=== PATIENT | male | born 1960 | race Caucasian/White ===

== ENCOUNTER 2017-02-15 15:53 | Emergency (ER) | payer MEDICAID ==
[~2017-02-15] VITALS: Ht 172.7 cm; Wt 70.0 kg
[2017-02-15] MEDS ORDERED: HYDR25 PO (16:05)
[2017-02-15] MEDS ORDERED: TRAM50TA4 PO (16:05)
[2017-02-15] MEDS ORDERED: ATEN50TA PO (16:05)
[2017-02-15] MEDS ORDERED: TRAZ-144 PO (16:05)
[2017-02-15] MEDS ORDERED: AMLO-512 PO (16:05)
[2017-02-15] MEDS ORDERED: FOLI0.8T43 (16:05)
[2017-02-15] MEDS ORDERED: GABA-529 PO (16:05)
[2017-02-15] MEDS ORDERED: FURO20 PO (16:05)
[2017-02-15] MEDS ORDERED: GABA-531 PO (16:05)
[2017-02-15] MEDS ORDERED: PHOSLOC PO (16:05)
[2017-02-15] MEDS ORDERED: OMEP20 PO (16:05)
[2017-02-15 16:12] LABS: GLUCOSE,POINT OF CARE 125 MG/DL (70-110)
[2017-02-15 17:37] LABS: BASOPHILS % (AUTO) 0.6 % (0.0-2.0); EOSINOPHILS % (AUTO) 9.2 % (1.0-6.0); HEMOGLOBIN 12.1 g/dL (13.5-17.5); LYMPHOCYTES # (AUTO) 1.7 K/uL (1.0-4.8); LYMPHOCYTES % (AUTO) 22.4 % (22.0-44.0); MEAN CORPUSCULAR HEMOGLOBIN 33.2 pg (26.0-34.0); MEAN CORPUSCULAR HGB CONC 34.5 G/dL (31.0-37.0); MEAN CORPUSCULAR VOLUME 96 fL (80-100); MONOCYTES # (AUTO) 0.7 K/uL (0.1-1.0); MONOCYTES % (AUTO) 8.8 % (2.0-9.0); NEUTROPHILS # (AUTO) 4.6 K/uL (1.8-7.7); PLATELET COUNT (AUTO) 221 K/uL (150-450); RED BLOOD CELL COUNT(AUTO) 3.64 MIL/uL (4.50-5.90); RED CELL DISTRIBUTION WIDTH 14.3 % (11.5-14.5); WHITE BLOOD COUNT (AUTO) 7.8 K/uL (4.5-11.0)
[2017-02-15 17:47] LABS: CALCIUM, TOTAL 7.5 mg/dL (8.8-10.5); CREATININE 5.42 mg/dL (0.60-1.30); POTASSIUM 4.8 mmol/L (3.5-5.1)
[2017-02-15 17:50] LABS: PROTHROMBIN TIME 10.7 SEC (9.4-11.6)
[2017-02-15 17:54] LABS: ALBUMIN 4.1 g/dL (3.4-5.0); BILIRUBIN,TOTAL 0.5 mg/dL (0.1-1.0); TOTAL PROTEIN, SERUM 7.3 g/dL (6.4-8.2)
[2017-02-15 21:00] VITALS: BP 130/79
== END 2017-02-15 21:15 | disposition home or self-care (01) ==
LOC: EMS 15:54
DX: S50.02XA Contusion of left elbow, initial encounter (principal); I12.0 Hypertensive chronic kidney disease with stage 5 chronic kidney disease or end stage renal disease; E11.22 Type 2 diabetes mellitus with diabetic chronic kidney disease; N18.6 End stage renal disease; Z99.2 Dependence on renal dialysis; Z91.15 Patient's noncompliance with renal dialysis; Y04.0XXA Assault by unarmed brawl or fight, initial encounter; Y93.89 Activity, other specified; Y92.89 Other specified places as the place of occurrence of the external cause; Y99.8 Other external cause status
CPT/HCPCS: 82962; 99285